=== PATIENT | male | born 1960 | race Caucasian/White ===

== ENCOUNTER → 2020-04-21 | Outpatient (CLI) | payer MEDICARE ==
[~2020-04-21] MED LIST: ALBU1.25 NEB; BUPR-173 PO; HYDR-3246 PO
[2020-04-21 11:17] LABS: BASOPHILS % (AUTO) 1 % (0-1); EOSINOPHILS % (AUTO) 3 % (1-7); LYMPHOCYTES % (AUTO) 34 % (22-44); MEAN CORPUSCULAR HEMOGLOBIN 29.3 pg (27.5-34.5); MEAN CORPUSCULAR HGB CONC 33.3 g/dL (33.2-36.2); MEAN PLATELET VOLUME 7.5 fL (7.4-10.4); MONOCYTES % (AUTO) 5 % (2-9); NEUTROPHILS % (AUTO) 57 % (42-75); PLATELET COUNT 263 x10^3/uL (130-400); RED BLOOD COUNT 5.13 x10^6/uL (4.38-5.82); RED CELL DISTRIBUTION WIDTH 13.3 % (9.4-14.8)
[2020-04-21 11:22] LABS: MD NO
[2020-04-21 11:26] LABS: ALANINE AMINOTRANSFERASE 30 U/L (12-78); ANION GAP 5 mmol/L (5-15); CALCIUM 9.3 mg/dL (8.5-10.1); CHLORIDE 109 mmol/L (98-107)
[2020-04-21 11:28] LABS: ALKALINE PHOSPHATASE 65 U/L (45-117); BILIRUBIN,TOTAL 0.4 mg/dL (0.2-1.0); TOTAL PROTEIN 7.7 g/dL (6.4-8.2)
[2020-04-21 11:31] LABS: INTERNATIONAL NORMALIZED RATIO 1.05 (0.93-1.1); PROTHROMBIN TIME 11.1 Seconds (9.6-11.5)
== END | disposition home or self-care (01) ==
LOC: STAR 10:11
PROVIDERS: ATTEND Orthopaedic Surgery
DX: Z01.818 Encounter for other preprocedural examination (principal); M16.12 Unilateral primary osteoarthritis, left hip; M25.552 Pain in left hip; Z20.828 Contact with and (suspected) exposure to other viral communicable diseases; Z79.01 Long term (current) use of anticoagulants
CPT/HCPCS: 36415; 80053; 83036; 85025; 85610; 85730; 87081; 87635; 87806; 93005; G0475

== ENCOUNTER 2020-04-25 09:47 | Observation (INO) | payer MEDICARE ==
[~2020-04-25] VITALS: Ht 185.4 cm; Wt 90.6 kg
[2020-04-25] MEDS ORDERED: CHLORHEXIDINE 15 ML UDC MM STA (10:03)
[2020-04-25 10:17] VITALS: BP 116/71
[2020-04-25] MEDS ORDERED: LACTATED RINGERS 1,000 ML IV SCH (10:30)
[2020-04-25] MEDS ORDERED: PLEASE ENTER HEIGHT AND WEIGHT MC SCH (10:30)
[2020-04-25] MEDS ORDERED: ALBU1.25 NEB (10:31)
[2020-04-25] MEDS ORDERED: HYDR-3246 PO (10:31)
[2020-04-25] MEDS ORDERED: BUPR-173 PO (10:31)
[2020-04-25] MEDS ORDERED: FENTANYL PF 250 MCG/5ML ONE (13:04)
[2020-04-25] MEDS ORDERED: CEFAZOLIN 1,000 MG ONE ×2 (13:40)
[2020-04-25] MEDS ORDERED: PROPOFOL 10 MG/ML, 20ML ONE (13:40)
[2020-04-25] MEDS ORDERED: LIDOCAINE-MPF 2% ,5ML ONE (13:40)
[2020-04-25] MEDS ORDERED: MIDAZOLAM 1 MG/ML, 2ML ONE (13:45)
[2020-04-25] MEDS ORDERED: SUCCINYLCHOLINE 20 MG/ML, 10ML ONE (14:25)
[2020-04-25] MEDS ORDERED: GLYCOPYRROLATE 0.2MG/1ML, 5ML ONE (14:27)
[2020-04-25] MEDS ORDERED: ONDANSETRON 2MG/ML, 2ML IVPush PRN ×2 (15:00→15:30)
[2020-04-25] MEDS ORDERED: FENTANYL PF 100 MCG/2ML IV PRN (15:00)
[2020-04-25] MEDS ORDERED: OXYcodone 5 MG/5 ML ORAL.SOL UDC PO PRN (15:00)
[2020-04-25] MEDS ORDERED: DIPHENHYDRAMINE 50 MG CAPSULE PO PRN (15:30)
[2020-04-25] MEDS ORDERED: POLYETHYLENE GLYCOL 17 GM PACKET PO PRN (15:30)
[2020-04-25] MEDS ORDERED: TRANEXAMIC ACID 1,000 MG in SODIUM CHLORIDE 0.9% 100 ML IVPB ONE (15:30)
[2020-04-25] MEDS ORDERED: MAGNESIUM HYDROXIDE 8%, 30ML UDC PO PRN (15:30)
[2020-04-25] MEDS ORDERED: SENNA/DOCUSATE TABLET PO PRN (15:30)
[2020-04-25] MEDS: KETOROLAC 30 MG/1 ML IV SCH ×2 (15:30→23:15)
[2020-04-25] MEDS ORDERED: ALUMINUM/MAG/SIMETHICONE 30 ML UDC PO PRN (15:30)
[2020-04-25] MEDS ORDERED: HYDROmorphone 1 MG/ML, 1ML INJ IVPush PRN (15:30)
[2020-04-25] MEDS ORDERED: ACETAMINOPHEN 650 MG/20.3 ML UDC PO PRN (15:30)
[2020-04-25] MEDS ORDERED: DEXAMETHASONE 4 MG/ML, 1ML IVPush SCH (15:30)
[2020-04-25] MEDS ORDERED: ONDANSETRON 4 MG TABLET PO PRN (15:30)
[2020-04-25] MEDS ORDERED: PSYLLIUM PACKET PO PRN (15:30)
[2020-04-25] MEDS ORDERED: MEPERIDINE/PF 25MG/ML,1ML ONE (15:31)
[2020-04-25] MEDS ORDERED: HYDROmorphone 1 MG/ML, 1ML INJ ONE (15:31)
[2020-04-25] MEDS ORDERED: DIAZEPAM 5 MG/ML, 2ML ONE (15:33)
[2020-04-25] MEDS: DIAZEPAM 5 MG/ML, 2ML IVPush PRN ×2 (15:35→16:00)
[2020-04-25] MEDS ORDERED: OXYcodone 5 MG/5 ML ORAL.SOL UDC ONE (15:54)
[2020-04-25] MEDS ORDERED: ACETAMINOPHEN 650 MG/20.3 ML UDC ONE (15:54)
[2020-04-25] MEDS ORDERED: ACETAMINOPHEN 325 MG TABLET ONE (15:54)
[2020-04-25] MEDS: HYDROmorphone 1 MG/ML, 1ML INJ IVPush PRN ×5 (16:00→16:50)
[2020-04-25] MEDS ORDERED: MEPERIDINE/PF 25MG/0.5ML IVPush PRN (16:00)
[2020-04-25] MEDS ORDERED: ACETAMINOPHEN 325 MG TABLET PO PRN (16:00)
[2020-04-25] MEDS ORDERED: HYDROmorphone 2 MG/ML, 1ML ONE (16:28)
[2020-04-25] MEDS ORDERED: METHOCARBAMOL 1,000 MG in DEXTROSE 5% 100 ML IV PRN (16:30)
[2020-04-25] MEDS ORDERED: KETOROLAC 30 MG/1 ML ONE (16:56)
[2020-04-25] MEDS ORDERED: ALBUTEROL SULFATE 2.5 MG/3 ML NPPB PRN (18:00)
[2020-04-25] MEDS: POTASSIUM CHLORIDE 20 MEQ in D5%-0.45% NACL 1,000 ML IV SCH (18:48)
[2020-04-25 19:58] VITALS: BP 93/59
[2020-04-25] MEDS: OXYcodone IR 5MG TABLET PO PRN ×2 (20:33→21:01)
[2020-04-25] MEDS: BUPROPION SR 100 MG TABLET PO SCH (20:34)
[2020-04-25] MEDS: ASPIRIN 81 MG TABLET EC PO SCH (20:34)
[2020-04-25] MEDS: DOCUSATE 100 MG CAPSULE PO SCH (20:35)
[2020-04-25] MEDS: CEFAZOLIN PMX 1GM/50ML 50 ML IVPB SCH (22:19)
[2020-04-25 23:12] VITALS: BP 91/56
[2020-04-26] MEDS: OXYcodone IR 5MG TABLET PO PRN ×3 (02:10→10:44)
[2020-04-26 03:50] VITALS: BP 94/59
[2020-04-26] MEDS: POTASSIUM CHLORIDE 20 MEQ in D5%-0.45% NACL 1,000 ML IV SCH (07:06)
[2020-04-26] MEDS: CEFAZOLIN PMX 1GM/50ML 50 ML IVPB SCH (07:17)
[2020-04-26] MEDS: ASPIRIN 81 MG TABLET EC PO SCH (07:41)
[2020-04-26] MEDS: DOCUSATE 100 MG CAPSULE PO SCH (07:41)
[2020-04-26] MEDS: KETOROLAC 30 MG/1 ML IV SCH (07:41)
[2020-04-26] MEDS: BUPROPION SR 100 MG TABLET PO SCH (07:42)
[2020-04-26 08:25] VITALS: BP 98/53
[2020-04-26] MEDS ORDERED: TAMSULOSIN 0.4 MG CAP.ER.24H PO SCH (09:00)
== END 2020-04-26 11:14 | disposition home or self-care (01) ==
LOC: OUT 09:47 → ORIP 15:26 → 4NE 17:17 → DCLOUNGE 04-26 10:59
PROVIDERS: ADMIT Orthopaedic Surgery; ATTEND Orthopaedic Surgery
DX: M87.9 Osteonecrosis, unspecified (principal); M16.12 Unilateral primary osteoarthritis, left hip; J43.9 Emphysema, unspecified; Z79.899 Other long term (current) drug therapy; Z99.81 Dependence on supplemental oxygen
CPT/HCPCS: 27130; 36415; 72170; 85014; 85018; 86850; 86900; 96361; 96365; 96366; 96375; 96376; 97161; C1713; C1776; G0378; J0330; J0690; J1170; J1885; J2175; J2250; J2704; J2800; J3010; J3360; J3480; J3490; J7120

== ENCOUNTER → 2020-05-18 | Outpatient (CLI) | payer MEDICARE | END | disposition home or self-care (01) | LOC: CFH 13:19 | PROVIDERS: ATTEND Internal Medicine | DX: J43.9 Emphysema, unspecified (principal); R91.8 Other nonspecific abnormal finding of lung field | CPT/HCPCS: 71250 ==